=== PATIENT | female | born 1975 | race African-American/Black ===

== ENCOUNTER 2017-09-06 22:42 | Emergency (ER) | payer SELFPAY ==
[2017-09-07] MEDS: predniSONE 50 MG TAB PO (00:49)
== END 2017-09-07 00:55 | disposition home or self-care (01) ==
LOC: FTE 22:42
DX: J44.1 Chronic obstructive pulmonary disease with (acute) exacerbation (principal); Z87.891 Personal history of nicotine dependence
CPT/HCPCS: 99284